=== PATIENT | male | born 1965 | race Caucasian/White ===

== ENCOUNTER 2016-06-27 11:54 | Day surgery (SDC) | payer OTHER ==
[~2016-06-27] VITALS: Ht 198.1 cm; Wt 108.9 kg
[~2016-06-27 11:54] MED LIST: OMEP20CA11 PO; Sodium Chloride LOK Flush 10 mL Syringe IV PRN; fentaNYL-PF 50 mCg/mL 2 mL Inj IVPUSH PRN
[2016-06-27 12:33] VITALS: BP 135/82; PULSE 58; RESP 16; O2SAT 96
[2016-06-27] MEDS ORDERED: 0.9% Sodium Chloride 1,000 ML IV ONE (13:37)
[2016-06-27 13:47] VITALS: BP 107/65; PULSE 58; RESP 16; O2SAT 93
[2016-06-27 13:57] VITALS: BP 104/61; PULSE 52; RESP 16; O2SAT 92
[2016-06-27 14:06] VITALS: BP 114/72; PULSE 70; RESP 16; O2SAT 95
--- NOTE | 2016-06-28 02:07 | ENDO ---
[address] [address] ENDOSCOPY PROCEDURE PATIENT: FORD LEYVA : 1965 MR#: [id number] ADMIT: 06/27/2016 JOB ID: [id number] DATE: 06/27/2016 OPERATION: 1. Esophagogastroduodenoscopy with biopsy. 2. Colonoscopy. PREOPERATIVE DIAGNOSIS(ES): 1. Gastroesophageal reflux disease. 2. Colorectal screen. POSTOPERATIVE DIAGNOSIS(ES): 1. Widely open, patent Schatzki ring. 2. Medium-sized hiatal hernia. 3. Normal colonoscopy. ANESTHESIA: 1. Fentanyl 175 mcg. 2. Versed 7 mg IV administered. COMPLICATIONS: None. BLOOD LOSS: Minimal. DESCRIPTION OF PROCEDURE: After risks and benefits were explained to the patient, informed consent was obtained. After anesthesia administered, upper endoscope was inserted in the mouth, intubated into the esophagus, stomach, second portion of duodenum. Mucosa carefully examined. After procedure was done, the scope was withdrawn and the procedure terminated. A colonoscope was inserted per rectum to cecum and mucosa carefully examined. Prep of the patient was excellent. After procedure was done, the scope withdrawn and the procedure terminated. FINDINGS: Upon inspection of the esophagus, the esophagus was normal without masses, ulcers, except for widely open, patent Schatzki ring of distal esophagus. Z-line was located 40 cm from incisors. Upon entering the stomach, there were no masses, ulcers or lesions seen. Retroflexion showed a medium-sized hiatal hernia. Duodenal bulb, first and second portion normal. Biopsies taken at the antrum body and distal esophagus. Upon inspection of the anus, no masses, hemorrhoids, ulcers, or fissures seen. Throughout the entire examination, there were no polyps, masses or lesions. Retroflexion was normal. IMPRESSION: 1. Normal colonoscopy. 2. Widely open, patent Schatzki ring. 3. Medium-sized hiatal hernia. RECOMMENDATIONS: 1. Await pathology results. 2. Repeat colonoscopy in 10 years for colorectal cancer screening. 3. Follow up in GI clinic as needed.
--- NOTE | 2016-06-30 16:12 | PATH ---
SURGICAL PATHOLOGY Attending Physician:Anish Nina MD CASE STATUS: Signed Out PATIENT NAME: FORD LEYVA PID: [id number] : 1965 DATE COLLECTED:06/27/2016 00:00 SPECIMEN: 1: Stomach, Antrum, Biopsy 2: Gastric, Biopsy 3: Esophagus, Biopsy CLINICAL HISTORY: 1). ANTRUM BIOPSY 2). BODY BIOPSY 3). DISTAL ESOPHAGUS BIOPSY FINAL DIAGNOSIS: 1.ANTRUM BIOPSY: ANTRAL MUCOSA WITH CHANGES CONSISTENT WITH REACTIVE GASTROPATHY. Negative for evidence of Helicobacter. Negative for intestinal metaplasia. Negative for dysplasia and malignancy. 2.GASTRIC BODY BIOPSY: GASTRIC FUNDIC MUCOSA WITHOUT ASSOCIATED SIGNIFICANT INFLAMMATION. Negative for evidence of Helicobacter. Negative for intestinal metaplasia. Negative for dysplasia and malignancy. 3.DISTAL ESOPHAGUS BIOPSY: SQUAMOUS MUCOSA AND SMALL AMOUNT OF GASTRIC CARDIA-TYPE MUCOSA NEGATIVE FOR SPECIALIZED METAPLASIA OF RHODES' S-TYPE ESOPHAGUS. Negative for dysplasia and malignancy. Rare squamous intraepithelial eosinophil present consistent with changes of chronic reflux. ICD10 code K21.0 GROSS DESCRIPTION: The specimen is received in three formalin filled containers labeled with the patient's name. 1). The specimen is sublabeled "antrum" and consists of 2 portions of tissue which aggregate to 0.3 x 0.3 x 0.2 CM. The specimen is entirely submitted in cassette 1A. 2). The specimen is sublabeled "body" and consists of a 0.3 x 0.3 x 0.2 CM portion of tissue which is entirely submitted in cassette 2A. 3). The specimen is sublabeled "distal esophagus" and consists of 2 portions of tissue which aggregate to 0.3 x 0.3 x 0.2 CM. The specimen is entirely submitted in cassette 3A. 06/28/2016 [facility] MICRO DESCRIPTION: See diagnosis. ICD-9 CODES: CPT CODES: 1: 60734 2: 37171 3: 02095 Electronically Signed Out Gregg Elmore MD [facility], [place] [address] Technical component performed at [facility], [facility] [address], [address]
== END 2016-06-27 23:59 | disposition home or self-care (01) ==
LOC: END 11:54
PROVIDERS: ATTEND Internal Medicine Gastroenterology
DX: Z12.11 Encounter for screening for malignant neoplasm of colon (principal); K21.9 Gastro-esophageal reflux disease without esophagitis; K44.9 Diaphragmatic hernia without obstruction or gangrene; K22.2 Esophageal obstruction
CPT/HCPCS: 43239; 99153; G0121; G0500; J2250; J3010; J7030